=== PATIENT | female | born 1955 | race Caucasian/White ===

== ENCOUNTER → 2024-10-05 12:53 | Outpatient (REF) | payer MEDICARE, OTHER, SELFPAY | LOC: WDC 12:53 | PROVIDERS: ATTENDING PHYSICIAN Nurse Practitioner Family | DX: M81.0 Age-related osteoporosis without current pathological fracture (principal); Z12.31 Encounter for screening mammogram for malignant neoplasm of breast | CPT/HCPCS: 77063; 77067 ==